=== PATIENT | male | born 1990 | race Hispanic/Latino ===

== ENCOUNTER 2017-02-06 06:16 | Emergency (ER) | payer MEDICARE, MEDICAID ==
[~2017-02-06] VITALS: Ht 172.7 cm; Wt 77.3 kg
[~2017-02-06 06:16] MED LIST: NOMED
[2017-02-06 06:21] VITALS: BP 136/87; PULSE 70; RESP 24; O2SAT 97
--- NOTE | 2017-02-06 06:24 | ED.REPORT ---
HPI-General Illness Date of Service February 06, 2017 ED Provider: Robbin Rivera DO 26 year old male presents to the ER complaining of bumps on his tongue and face , noticed at 02:00 this morning. He states that he is able to elicit blood when he "pops" the bumps, and sees "insects" in the wounds. Patient denies any pain. He endorses methamphetamine, THC and alcohol use last night. Nursing Notes Stated Complaint: BUMPS ON TONGUE Chief Complaint: General Complaint Nursing Notes Reviewed: Yes Allergies: Coded Allergies: No Known Allergies (Unverified Allergy, 09/30/12) Scheduled Benzoyl Peroxide (Acne Spot Treatment) 21 Gm Cream..g. 1 APPLIC TP DAILY apply to facial acne Miscellaneous Medications No Historical Medication (No Historical Medication) Ea General Time Seen by MD: 06:33 Chief Complaint Other (Bumps on Tongue) Hx Obtained From: Patient Arrived By: Walk-in Sudden in Onset?: No Onset Occurred: 1 - 4 hours ago Symptom Duration: Since onset Similar Sx Previous: No Past Medical History Smoking History Unknown if Ever Smoker Social History Alcohol Use: >5 per day Drug Use: Meth, THC Ambulatory Status Independent Review of Systems +Bumps, Tongue and Face Full Review of Systems Constitutional: Denies: Chills, Fever GI: Denies: Nausea, Vomiting Musculoskeletal: Denies: Back pain, Extremity pain, Joint pain, Lumbar pain, Neck pain Skin: Denies Rash Allergy / Immune: Denies: Itching Complete sys rev & neg: except as marked. Physical Exam Vital Signs Vital Signs Date Time Temp Pulse Resp B/P Pulse Ox O2 Delivery O2 Flow Rate FiO2 02/06/17 06:21 36.8 70 24 136/87 97 Room Air Initial VS: Reviewed Head / Eyes: Atraumatic, Normocephalic Neck: Supple, Non-tender, Full range of motion Extremities: Vascular intact, Neuro intact, No swelling, No tenderness Skin: Warm, Dry, No cyanosis Neurologic: Alert, Oriented, Nonfocal General/Constitutional: Awake, Alert, Well developed ENT: Airway patent, Mucous membranes moist Aphthous ulcers or superfical tate to the tongue, <1cm Skin: Warm, Dry, Intact Rash / Lesion Notes: Scattered areas of acne No petechial rash PSYCHIATRIC: Odd affect Re-Eval/Medical Decision Med Decision/Clinical Course Overall, there is no emergent medical condition. This patient appears to have either an aphthous ulcer or superficial thermal burn to the end of his tongue, additionally has what looks like normal and very minor acne. This is likely compounded by the recent drug use as he is perseverating and even at one point states that bugs are coming out of his tongue. He has no particular high risk features on exam such as petechial rash, nicholski's sign, fever, or other unstable vital signs. Time of Eval: 06:33 Re-Evaluation/Progress Note: Discussed physical examination findings and plan to discharge. Patient is amenable to the plan. Return precautions given. All other questions addressed. Counseled Regarding: Diagnosis, Lab results, Need for follow-up, When/why to return to ED Discharge & Departure Primary Impression: Aphthous ulcer of tongue Additional Impression: Acne Disposition: Home Discharge Condition All VS Reviewed: Yes Condition: Stable Additional Instructions: Use Oxy 10 on your skin lesions, use salt water gargles on your tongue, avoid hot foods or fluids or smoking as this will all irritating her tongue. Follow- up with the primary care doctor. Stop using drugs as this is bad for you health. Return to ER as needed if worse [facility] Res[facility] Crisis Respite Scribe Attestation Portions of this note were transcribed by Levi Castillo. I, Dr. Rivera, personally performed the history, physical exam and medical decision-making; I reviewed and confirmed the accuracy of the information in the transcribed note. Signed by: Edgar Mays, 02/06/2017 and 06:42 copies to: [facility] ; [facility]; Crisis Respite; [facility] Resident Clinic Robbin Rivera DO February 06, 2017 06:24 LEVI CASTILLO February 06, 2017 06:34
[2017-02-06] MEDS ORDERED: [UNRECOGNIZED DRUG - CODE] TP (06:39)
== END 2017-02-06 07:18 | disposition home or self-care (01) ==
LOC: SED 06:16 → EDUNIT# 06:16 → SED 07:18
DX: K12.0 Recurrent oral aphthae (principal); L70.9 Acne, unspecified

== ENCOUNTER 2017-05-30 09:07 | Emergency (ER) | payer MEDICARE, MEDICAID ==
[~2017-05-30] VITALS: Ht 172.7 cm; Wt 81.8 kg
[~2017-05-30 09:07] MED LIST changes: +[UNRECOGNIZED DRUG - CODE] TP
[2017-05-30 09:19] VITALS: BP 145/85; PULSE 58; RESP 16; O2SAT 98
--- NOTE | 2017-05-30 09:28 | ED.REPORT ---
HPI-Psychiatric Illness Date of Service May 30, 2017 ED Provider: Robbin Rivera DO Pt is a 27 y/o male w/ a hx of developmental delay, and unknown psych history presenting to the ED via police c/o auditory hallucinations which have been occurring since 2013. He walked into the [employer] office this morning voluntarily seeking help and was brought here for a mental health evaluation. The patient has been hearing voices of a woman who used to be a nurse here". The voices are telling him humiliating things such as that he has a small penis. He also says that the voices are trying to help him and not telling him to hurt himself or other people. He wants to shoot himself because people don't believe him and also wants to hurt the woman. He says that he knows where this woman lives and saw her in [place] today although he does not know her name. He is not and has no girlfriend. Drug use includes THC; he last used methamphetamine 4 weeks ago. He drank alcohol last night to get to sleep. There are no physical concerns. The patient takes no medications and has no definitive psych diagnosis. The nurses in the ED were able to identify the name of the woman and give her contact information to the [facility] who will contact her directly and warn her that this situation is happening. Nursing Notes Stated Complaint: MENTAL HEALTH EVAL Chief Complaint: Psychiatric Complaint Nursing Notes Reviewed: Yes Allergies: Coded Allergies: No Known Allergies (Unverified Allergy, Unknown, 05/30/17) Scheduled Benzoyl Peroxide (Acne Spot Treatment) 21 Gm Cream..g. 1 APPLIC TP DAILY apply to facial acne Miscellaneous Medications No Historical Medication (No Historical Medication) Ea General Time Seen by MD: 09:27 Chief Complaint Hallucinations, auditory Hx Obtained From: Patient, Police Arrived By: Police Onset Occurred: More than a week ago... (>6 months) Symptom Duration: Intermittent Progression Since Onset: Intermittent Severity: Current: No pain currently Severity: Maximum: No pain Similar Sx Previous: Yes Risk-Psychiatric Illness Suicide Risk Stratification RF Statements: Risk factors reviewed Past Medical History Past Medical History Meth abuse - last used 4 weeks ago as of 05/30/17 Developmental delay Past Surgical History None reported Smoking History Current Some Day Smoker, Light Tobacco Smoker Social History Alcohol Use: 1-3 per day Drug Use: Meth, THC Ambulatory Status Independent Review of Systems Constitutional: Denies: Fever Respiratory: Denies: Shortness of breath Cardiovascular: Denies: Chest pain GI: Denies: Abdominal pain Neurologic: Denies: Change LOC Psychiatric: Reports: Delusional, Hallucinations, auditory, Homicidal ideation , Suicidal ideation Complete sys rev & neg: except as marked. Physical Exam Initial Vital Signs Vital Signs (First) Date Time Temp Pulse Resp B/P Pulse Ox O2 Delivery O2 Flow Rate FiO2 05/30/17 09:19 37.2 58 16 145/85 98 Room Air Initial VS: Reviewed, Vital signs normal Head / Eyes: Atraumatic, Normocephalic ENT: Mucous membranes moist, Conjunctiva normal Neck: Supple, Full range of motion Respiratory: Breath sounds normal, Clear to auscultation, No respiratory distress Cardiovascular: Regular rate & rhythm, Heart sounds normal, Intact distal pulses Abdomen / GI: Soft, Non-tender Extremities: Vascular intact, Neuro intact Skin: Warm, Dry, No cyanosis General/Constitutional: Awake, Alert, No acute distress, Cooperative, Not toxic appearing Neurologic: Oriented X3, Speech NL, No motor deficits, CN II - XII intact PSYCH: Child-like affect Suicidal with plan Homicidal to specific person Endorses auditory hallucinations Paranoid delusions Multiple tattoos Interpretation & Diagnostics Lab Results Interpretation Result Diagram: 05/30/17 0952 05/30/17 0952 Test 05/30/17 09:52 White Blood Count 5.7th/mm3 (3.8-10.1) Red Blood Count 5.40mil/mm3 (4.40-5.80) Hemoglobin 15.0g/dL (13.8-17.2) Hematocrit 43.7% (41.0-50.0) Mean Corpuscular Volume 80.9fL (81-100) Mean Corpuscular Hemoglobin 27.8pg (27.0-35.0) Mean Corpuscular Hemoglobin Concent 34.3% (32.0-37.0) Red Cell Distribution Width 14.0% (12.3-15.4) Platelet Count 272bil/L (150-400) Neutrophils (%) (Auto) 53.6% (40-74) Lymphocytes (%) (Auto) 29.8% (14-46) Monocytes (%) (Auto) 9.9% (4-12) Eosinophils (%) (Auto) 6.3% (0-5) Basophils (%) (Auto) 0.2% (0-3) Sodium Level 138mEq/L (134-144) Potassium Level 4.4mEq/L (3.5-5.2) Chloride Level 103mEq/L (97-108) Carbon Dioxide Level 23mmol/L (18-29) Blood Urea Nitrogen 14mg/dL (6-20) Creatinine 0.80mg/dL (0.76-1.27) Estimat Glomerular Filtration Rate 122mL/min (>59) Glucose Level 102mg/dL (60-99) Calcium Level 9.0mg/dL (8.5-10.1) Total Bilirubin 0.5mg/dL (0.0-1.2) Aspartate Amino Transf (AST/SGOT) 25U/L (0-50) Alanine Aminotransferase (ALT/SGPT) 18U/L (0-44) Alkaline Phosphatase 63U/L (25-150) Total Protein 6.9g/dL (6.4-8.4) Albumin 4.4g/dL (3.4-5.0) Thyroid Stimulating Hormone (TSH) 2.270uIU/mL (0.450-4.500) Hold Herrera Top Tube Received (Received) Lab Results Interpretation: Breathalyzer: 0 Urine drug screen: negative Re-Eval/Medical Decision Med Decision/Clinical Course Persistent paranoid delusions and auditory and probable visual hallucinations concerning for him projecting these delusions onto a random citizen who fits the profile of this woman who he has homicidal ideations towards. Express need for detainment given the possibility of this occurring. Ultimately, the patient is detained, and is accepted by Dr. Nelson in psychiatry. However, because of that assignments the patient will be held overnight in the emergency department. For this reason, Care will be transferred to Dr. Toro. Source of Hx: Old records Re-Evaluation/Progress #1: Time of Eval: 10:40 Re-Evaluation/Progress Note: Medically cleared at this time awaiting [employer] [employer] dispo. Re-Evaluation/Progress #2: Time of Eval: 15:53 Re-Evaluation/Progress Note: Cooperative throughout stay. [facility] looking for placement. Consultation #1: Consulted With: slate worker Call Returned at: 10:30 Microsoft Application Developer: Will see patient, Agrees with eval, Agrees with plan Consultation #2: Referral / Consult Name: Rigoberto Nelson MD Consulted With: Psychiatry Call Returned at: 16:15 Microsoft Application Developer: Will see patient, Agrees with eval, Agrees with plan, Accepts admit Note: Discussed case. Agrees with plan for detainment. Accepts admission. Will see the patient tomorrow morning. Recommends Haldol 5 mg and Ativan 2 mg for sedation once this evening. Counseled Regarding: Diagnosis, Lab results, Need for admission Discharge & Departure Impression: Primary Impression: Development delay Additional Impressions: Psychosis Psychosis type: delusional disorder Qualified Code: F22 - Delusional disorders Homicidal ideations Suicidal ideations )( Condition at Discharge: Clear for psych facility Disposition: ADMITTED TO HOSPITAL Discharge Condition All VS Reviewed: Yes Condition: Stable Referrals: NOPCP (PCP) Care Transferred to: [facility] Care Transferred at: 18:00 Scribe Attestation Portions of this note were transcribed by Reji Francis. I, Dr. Rivera personally performed the history, physical exam and medical decision-making; I reviewed and confirmed the accuracy of the information in the transcribed note. Robbin Rivera DO May 30, 2017 09:28 REJI FRANCIS May 30, 2017 09:31
[2017-05-30 10:07] LABS: BASOPHILS % (AUTO) 0.2 % (0-3); EOSINOPHILS % (AUTO) 6.3 % (0-5); MONOCYTES % (AUTO) 9.9 % (4-12); Mean Corpuscular Hemoglobin 27.8 pg (27.0-35.0); Mean Corpuscular Volume 80.9 fL (81-100); NEUTROPHILS % (AUTO) 53.6 % (40-74); Platelet Count 272 bil/L (150-400)
--- NOTE | 2017-05-30 10:53 | NUR ---
Mental Health Evaluation Jozef Moody 05/28/2017 Reason for Hospital Visit: Suicidal and Homicidal Ideation Precipitating Problem: Pt self presented to Psychiatric Office requesting help for the voices he was hearing. Police brought pt to the ED for mental health evaluation. ASSISTANT COMMUNITY MANAGER met with pt at bedside, pt was agreeable to talk with ASSISTANT COMMUNITY MANAGER. Pt requested help to "make the voices stop." Pt was not able to stay on one topic and not easily refocused. Pt jumped from topics including being in a relationship, women waiting to have sex, pt emphasizing the voices in his head which are "mean even though I am nice to them." Pt denies the voices tell him to do things, but did talk about how a voice of a former RN here at the hospital he sometimes hears spreads rumors about him in the community and about his penis size. When asked if the pt knew her, he said no. When asked if she knew him, pt said "she doesn't know me at all, but I saw her at [facility] today." Pt did endorse Visual hallucinations as well stating "I see many people outside, how would you feel if someone stepped on your toes and wanted to be in a relationship but your just trying to get your life together. They are everywhere." Pt denies any current suicidal ideation but did tell police he would shoot himself if the voices did not stop. Pt could not identify if he had access to a gun. Pt did endorse homicidal ideation with statements about wanting to kill an RN who he could not identify by name only by appearance (curly hair and short). Police did make contact with a suspected RN that was a former [employer]A that matches pt description, but the former UA does not know pt at all. It is unclear if this RN is a delusion as well or if she is a real person he has interacted with in the past. When asked if pt had any thoughts of harming others pt stated yes but could not identify anyone else specific, pt just said "People! I have so much anger inside of me. I will attack someone. I don't want to attack you, but you would cry If I did." Police provided Affidavit, placed on chart in favor of hospitalization. ASSISTANT COMMUNITY MANAGER spoke with pt mother Katharine ([phone]) who states pt was functioning as normal and going to work until she received a phone call from he Police this morning explaining that pt was requesting help. Pt mother concerned about pt behaviors but declined completing an affidavit. Pt mother does not think she will be able to come to the ED today. Mental Status: Pt is a 27 year old male. Pt is well groomed. Pt makes appropriate eye contact. Pt affect is limited. Pt mood appears to be anxious. Pt speech is normal in volume with a fast rate. Pt speech is difficult to understand at times. Pt is alert to person and place only. Pt's thought process is not clear or linear. Pt thought content is scattered and paranoid. Pt endorses current HI and thoughts of harming others. Pt had previously endorsed SI with police but denies any current SI. Psychiatric Hx: Per [facility], pt does not have any previous hospitalizations. Pt is not currently enrolled in services. Pt does have a hx with [facility] services back in 2011. Per pt mother, pt does not have known psychiatric hx but does have a developmental delay. CD Hx: Pt has hx of meth use from 4 weeks ago. Pt tox screen was negative. Pt BAL was 0. Legal hx: Denies. Diagnosis: 298.9 Unspecified psychotic disorder Disposition: Pt endorses current HI and thoughts of harming other people. Pt denies current SI to ASSISTANT COMMUNITY MANAGER but told Police he would kill himself if the voices did not stop. Pt delusions have prevented pt from going to work or functioning as normal. feels like pt could project these delusions onto other people in the community and could be a danger to himself as well as other people. ASSISTANT COMMUNITY MANAGER discussed LRO including talking with a counselor or psychiatrist and possibly trying some medications to stabilize him in efforts to make the voices go away as pt requested. Pt declined these options and emphasized that he "does not like taking pills." Pt states he does like the way they make him feel. Pt is not safe to discharge into the community. ASSISTANT COMMUNITY MANAGER discussed with and it was decided that ASSISTANT COMMUNITY MANAGER would request [facility] Dispatch. STEVENSON Dispatched [facility] Dominick. notified. [address]
[2017-05-30] MEDS ORDERED: LORazepam 2 mg Tablet PO ONE ×2 (15:05→21:00)
[2017-05-30 18:57] VITALS: BP 90/56; PULSE 56; RESP 16; O2SAT 100
[2017-05-30 23:15] VITALS: BP 90/45; PULSE 58; RESP 18; O2SAT 100
[2017-05-31 05:32] VITALS: BP 94/52; PULSE 56; RESP 16; O2SAT 100
[2017-05-31 09:56] VITALS: BP 116/68; PULSE 60; RESP 16; O2SAT 99
[2017-05-31 14:15] VITALS: BP 117/77; PULSE 72; RESP 16; O2SAT 99
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
[2017-05-31 18:27] VITALS: BP 117/68; PULSE 67; RESP 16; O2SAT 100
[2017-05-31 23:04] VITALS: BP 93/56; PULSE 63; RESP 18; O2SAT 98
[2017-06-01 06:03] VITALS: BP 113/65; PULSE 63; RESP 15; O2SAT 98
[2017-06-01 10:17] VITALS: BP 118/65; PULSE 68; RESP 16; O2SAT 100
[2017-06-01] MEDS ORDERED: HALO10TA PO (10:37)
[2017-06-01] MEDS ORDERED: DIPH25CA6 PO (10:37)
== END 2017-06-01 11:59 | disposition home or self-care (01) ==
LOC: SED 09:07
DX: F22 Delusional disorders (principal); R45.851 Suicidal ideations; R45.850 Homicidal ideations; F17.200 Nicotine dependence, unspecified, uncomplicated